=== PATIENT | male | born 1955 | race Caucasian/White ===

== ENCOUNTER 2019-01-26 13:38 | Emergency (ER) | payer MEDICARE, SELFPAY ==
[2019-01-26 13:39] VITALS: BP 147/70; PULSE 100; RESP 16; TEMP 37.2; O2SAT 96; BMI 34.0
--- NOTE | 2019-01-26 14:06 | RAD_ITS ---
STUDY: X-RAY CHEST REASON FOR EXAM: Male, 63 years old. Tachypnea and fever. TECHNIQUE: PA and lateral views of the chest. COMPARISON: None. FINDINGS: The lungs are clear and expanded. There is no demonstrated pleural abnormality. There is borderline cardiomegaly. Normal mediastinum and delfina. Normal visualized pulmonary arteries. There is atherosclerotic tortuosity of the aortic arch and descending thoracic aorta. There are diffuse degenerative changes of the visualized thoracic spine. Bilateral shoulder replacement. There is no demonstrated abnormality of the visualized soft tissue structures of the upper abdomen. RAD/Chest PA and Lateral IMPRESSION: No acute abnormality is seen. Electronically Signed: Mickey Ruff, at 15:00 EDT , Service support ,
[2019-01-26 14:29] LABS: Absolute Lymphocyte Count 0.54 X10^3/ul (0.83-4.51); Absolute Neutrophil Count 12.8 X10^3/uL (2.0-7.7); Basophil# 0.02 X10^3/uL; Basophil% 0.1 % (0-1); Differential Indicated SCAN CRITERIA MET; Eosinophil# 0.02 X10^3/uL; Eosinophils% 0.1 % (0-5); Hematocrit 44.3 % (40-54); Hemoglobin 15.4 g/dl (13.0-16.5); Lymphocyte # 0.54 X10^3/ul (4.0); Lymphocyte % 3.8 % (19-41); Mean Corp Hgb Conc 34.8 g/gl (32-36); Mean Corpuscular Hgb 30.4 pg (27.0-32.0); Mean Corpuscular Volume 87.4 fL (80-94); Monocyte# 0.91 X10^3/uL; Monocyte% 6.4 % (0-10); Neutrophil # 12.76 X10^3/uL (2.7-7.7); Neutrophil % 89.5 % (47-70); POSITIVE COUNT NO; POSITIVE DIFFERENTIAL YES; POSITIVE MORPHOLOGY NO; Platelet Count 209 K/mm3 (150-450); RBC Distribution Width CV 12.5 % (11.6-14.6); RBC Distribution Width SD 39.9 fl (35.1-43.9); Red Blood Count 5.07 M/mm3 (4.6-6.2); White Blood Count 14.3 K/mm3 (4.4-11.0)
[2019-01-26 14:42] LABS: Anion Gap 0 (5-15); BUN 17 mg/dL (7-18); Calcium,Total 9.2 mg/dL (8.5-10.1); Chloride 106 mmol/L (98-107); EST Glomerular Filtration Rate 91 mL/min (>60); Est Glom Filt Rate - Afr Amer 110 mL/min (>60); Estimated Creatinine Clearance 84.01 ml/min; Glucose 121 mg/dL (74-106); Potassium 4.1 mmol/L (3.5-5.1); Sodium Level 136 mmol/L (136-145)
[2019-01-26 14:49] LABS: Platelet Estimate ADEQUATE (ADEQ)
[2019-01-26 14:50] LABS: Red Cell Morphology NORM C+C NORMAL (NORM C&C)
[2019-01-26 14:54] LABS: Lactic Acid 1.6 mmol/L (0.4-2.0)
--- NOTE | 2019-01-26 14:54 | ED.VIS.GEN ---
History of Present Illness Chief Complaint: Back Detail of Chief Complaint: Bilateral upper back and shoulder pain Informant: Patient, Significant Other Onset: Days - For the past 2 days Context: Sudden Onset Timing: Continuous Quality: Pain Location: Upper back bilaterally Current Severity: Mild Maximum Severity: Moderate Worsened by: Use of upper extremity Relieved by: Nothing Associated Symptoms: Documented fever 101.0 degrees at urgent care. Narrative: Patient went to urgent care because of bilateral upper back pain. He was unaware that he had a fever. He did take 6 ibuprofen tablets and reason he may not have an elevated temperature presently. He complains of mild head discomfort. Denies photophobia. Patient reports neck pain which he felt was secondary to strenuous activity. He was unaware that he is breathing rapidly. He denies shortness of breath. Does report slight cough. He denies dyspnea on exertion. He denies nausea, vomiting or diarrhea. He denies dysuria, frequency, urgency hematuria. He denies myalgias arthralgias. He denies rash. Prior similar symptoms: No Recent Illness/Hospitalization: No - Past Medical History (1) No significant past medical history Status: Acute Past Medical History - Allergies and Home Meds Allergies/Adverse Reactions: Allergies acetaminophen [From Percocet] Adverse Reaction (Verified 01/26/19 13:41) Itching codeine Adverse Reaction (Verified 01/26/19 13:41) Upset Stomach oxycodone HCl [From Percocet] Adverse Reaction (Verified 01/26/19 13:41) Itching tramadol Adverse Reaction (Verified 01/26/19 13:41) Itching Primary Care Physician: Artie Lamar DO [Primary Care Provider] - Prior records reviewed: Yes Surgical History: herniorrhaphy Lives: Spouse/ Significant Other Smoking Status: Former smoker Alcohol: Rare Drugs: None Review of Systems General: Denies: Chills, Fever, Malaise, Subjective, Sweats Eyes: Denies: Visual changes - bilaterally, Blurred Vision - bilaterally, Diplopia ENT: Denies: Bilateral ear pain, Rhinorrhea, Sore throat Cardiovascular: Denies: Chest pain, Palpitations, Heart racing, -, - Respiratory: Reports: Cough. Denies: Dyspnea, Sputum, Dyspnea on exertion, Orthopnea, Paroxysmal nocturnal dyspnea, -, - Gastrointestinal: Denies: Abdominal pain, Nausea, Vomiting, Diarrhea, Melena, Hematochezia Genitourinary: Denies: Dysuria, Hematuria, Frequency Musculoskeletal: Reports: Swelling. Denies: Myalgias, Arthralgias, Neck pain, Back pain, Extremity Pain Skin: Denies: Rash, Wounds Neurological: Denies: Headache, Weakness, Parasthesia, Numbness Endocrine: Denies: Polyuria, Polydipsia Hematologic: Denies: Easy bruising, Easy bleeding Physical Exam Vital Signs/Narrative: Vital Signs Temp Pulse Resp BP Pulse Ox 01/26/19 13:39 98.9 F 100 16 147/70 H 96 Inital Vital Signs reviewed: Yes General: Well nourished, Well developed, No Acute Distress Head: Normocephalic, Atraumatic Eyes: Perrl, EOMI ENT: Moist mucous membranes, No rhinorrhea, TM's clear, -. Negative for: Dry mucous membranes, Nasal congestion, Sinus tenderness Neck: Supple, Nontender, No lymphadenopathy, No JVD Cardiovascular: Regular rate, Regular rhythm, No murmurs, Normal S1, Normal S2 Respiratory: No distress, Chest nontender, Rales - Right base Abdomen: Soft, Nontender, Nondistended, Normal bowel sounds Back: Nontender, Normal Inspection. Negative for: CVA tenderness, Spinal tenderness Extremities: Nontender, No edema, - - Axillary, median, radial and ulnar nerve function intact. Skin: Normal color, No rash Neurological: Alert, Oriented x3, Cranial nerves II-XII grossly intact, Normal Strength, Normal Sensation Psychological: Normal affect, Normal Mood Diagnostic/Tx/Re-eval Chest X-Ray - ED: 2 View, Read by ED Physician, Read by Radiologist, Normal, Heart, Lungs, Mediastinum, Bony Structures, No Acute Disease Impressions Chest X-Ray 01/26/19 14:06 IMPRESSION: No acute abnormality is seen. Electronically Signed: Mickey Ruff, at 15:00 EDT , Service support , 01/26/19 14:06 Chest PA and Lateral [RAD] Stat Laboratory Results 01/26/19 01/26/19 01/26/19 14:18 14:18 14:18 WBC 14.3 H RBC 5.07 Hgb 15.4 Hct 44.3 MCV 87.4 MCH 30.4 MCHC 34.8 RDW 12.5 RDW Differential 39.9 Plt Count 209 MPV 9.0 Immature Gran % (Auto) 0.100 Neut % (Auto) 89.5 H Lymph % (Auto) 3.8 L [place] % (Auto) 6.4 Eos % (Auto) 0.1 Baso % (Auto) 0.1 Absolute Neuts (auto) 12.8 H Absolute Lymphs (auto) 0.54 L Total Counted Not Reportable Differential Comment Platelet Estimate ADEQUATE RBC Morphology NORM C+C Sodium 136 Potassium 4.1 Chloride 106 Carbon Dioxide 30.0 Anion Gap 0 L BUN 17 Creatinine 0.90 Estim Creat Clear Calc 84.01 Est GFR (MDRD) Af Amer 110 Est GFR (MDRD) Non-Af 91 BUN/Creatinine Ratio 19.0 Glucose 121 H Lactic Acid 1.6 Calcium 9.2 - Medical Decision Making With fever and tachypnea and slight cough will obtain chest x-ray and appropriate blood work to assess for pneumonia. Otherwise this probably represents a viral illness with muscle skeletal pain. ED Disposition - Plan for ED Patient: Disposition: Home or Assisted Living Diagnosis: Fever, unknown origin, Acute upper back pain, Leukocytosis Instructions: ED Neck Back Pain General, ED Fever Unconf Cause Referrals: Artie Lamar DO [Primary Care Provider] - 3-5 Days if not improving
[2019-01-26] MEDS: Ketorolac 15 MG/ML Vial IV (16:24)
[2019-01-26 16:25] VITALS: BP 138/76; PULSE 78; RESP 15; O2SAT 95
== END 2019-01-26 17:02 | disposition home or self-care (01) ==
PROVIDERS: Emergency Provider Emergency Medicine; Family Provider Student in an Organized Health Care Education/Training Program; PCP Student in an Organized Health Care Education/Training Program
DX: R50.9 Fever, unspecified (principal); M54.2 Cervicalgia; R06.82 Tachypnea, not elsewhere classified; R05 Cough; Z88.5 Allergy status to narcotic agent; Z88.8 Allergy status to other drugs, medicaments and biological substances; Z87.891 Personal history of nicotine dependence
CPT/HCPCS: 71046; 80048; 83605; 85025; 96374; 99284; A4216

== ENCOUNTER 2021-08-08 04:54 | Emergency (ER) | payer MEDICARE, SELFPAY ==
[2021-08-08 04:55] VITALS: BP 164/90; PULSE 75; RESP 17; TEMP 37.1; O2SAT 98; BMI 36.6
[2021-08-08 05:06] VITALS: O2SAT 97
--- NOTE | 2021-08-08 05:06 | EKG12_ITS ---
Test Reason : SOB Blood Pressure : / mmHG Vent. Rate : 070 BPM Atrial Rate : 070 BPM P-R Int : 184 ms QRS Dur : 096 ms QT Int : 380 ms P-R-T Axes : 051 004 022 degrees QTc Int : 410 ms Normal sinus rhythm Normal ECG Confirmed by BABAR PETERSON, SONALI ([id number]), senior editor ILIANA POOLE ([id number]) on 08/13/2021 9:27:33 AM Referred By: RU Confirmed By:SONALI ECKERT MD
--- NOTE | 2021-08-08 05:07 | EX.ED.VIS.UR ---
HPI HPI - URI History of Present Illness Chief Complaint: Cough Detail of Chief Complaint: Cough and shortness of breath that started 3 days ago Informant: patient Associated Symptoms Associated Symptoms: Positive for Productive Cough Narrative Narrative: Is with cough and shortness of breath started 3 days ago. Patient is complaining of a fever. Patient states cough productive of brown sputum at times. Patient has had the Covid vaccine but not the booster. He denies any chest pain. Patient states his also had a similar illness and she had the illness first. He denies recent travel or surgery. Prior similar symptoms: No ROS ROS ED Constitutional Constitutional ED: Reports systems reviewed and no addt'l complaints, except as documented and fever(s); Denies body ache(s), change in weight or chills Eyes Eyes: Denies acute decrease in peripheral vision, change in vision, double vision or loss of vision ENT ENT ED: Reports none; Denies ear pain, lip swelling, loss taste/smell, neck pain, otalgia or sore throat Cardiovascular Cardiovascular: Reports none; Denies abdominal pain, chest pain with activity, leg edema, lightheadedness, palpitations, rapid heart rate or syncope Respiratory/Chest Respiratory/Chest: Reports none, cough and sputum; Denies change in mental status, dry cough, dyspnea, hemoptysis, shortness of breath at rest or shortness of breath with exertion Gastrointestinal Gastrointestinal: Reports none; Denies abdominal pain, change in stool character, diarrhea, hematemesis, hematochezia, melena, rectal bleeding or vomiting Genitourinary Genitourinary ED: Reports none; Denies abdominal discomfort, anuria, dysuria, genital pain or polyuria Musculoskeletal Musculoskeletal: Reports none; Denies arthralgias, back pain, difficulty walking, extremity pain, muscle weakness or myalgias Integumentary Reports none; Denies abscess or rash Neurologic Neurologic: Reports none; Denies abnormal gait, confusion, focal weakness, frequent falls, headache(s), loss of vision, numbness, paresthesias, radicular pain, vertigo or weakness Psychiatric Psychiatric: Reports systems reviewed and no addt'l complaints, except as documented and none; Denies behavioral changes, confusion, difficulty concentrating, hallucinations, suicidal ideation, tactile hallucinations or visual hallucinations Endocrine Endocrinology: Denies none, cold intolerance, excessive sweating, fatigue or heat intolerance Hematologic/Lymphatic Hematologic/Lymphatic: Reports none; Denies anemia, easy bleeding or easy bruising Allergic/Immunologic Allergic/Immunologic ED: Denies as per HPI, none, lip swelling, mouth swelling, throat swelling, tongue swelling or hives PFSH PFS Medical History (Updated 08/08/21 @ 06:[address] Jg Wooten, DO) Diabetes High cholesterol PRATIMA (obstructive sleep apnea) Home Medications omeprazole 20 mg PO DAILY 08/08/21 [History Last Taken Unknown] oseltamivir [Tamiflu] 75 mg PO BID 5 Days #10 cap 08/08/21 [Rx Last Taken Unknown] Allergy/AdvReac Type Severity Reaction Status Date / Time codeine AdvReac Upset Verified 01/26/19 13:41 Stomach oxycodone HCl [From Percocet] AdvReac Itching Verified 01/26/19 13:41 tramadol AdvReac Itching Verified 01/26/19 13:41 Social History Smoking Status: Former smoker EXAM Physical Exam Const Vital Signs: 08/08/21 04:55 08/08/21 05:06 08/08/21 05:27 Temperature 98.7 F Temperature Source Temporal Pulse Rate 75 72 Respiratory Rate 17 16 Respiratory Effort Normal Non-Labored Respiratory Depth Normal Respiratory Pattern Normal Normal Blood Pressure 164/90 H Blood Pressure Mean 114 Pulse Ox 98 Oxygen Delivery Method Room Air Room Air Positive well nourished and well developed General Appearance ED: well developed and NAD HEENT Reports TM's clear and moist mucous membranes normocephalic and atraumatic; Negative for trauma or tenderness Tympanic Membrane ED: Yes TM's clear Eyes PERRL and EOMs intact bilaterally General Eye ED: Negative for pale conjunctiva or scleral icterus Neck no lymphadenopathy, supple and no JVD General: Negative for tenderness Chest Wall inspection of chest normal and palpation of chest normal Chest: Negative for tenderness Resp clear to auscultation bilaterally Effort and Inspection: Negative for respiratory distress or pain with movement Auscultation: rhonchi and wheezes; Negative for diminished lung sounds Cardio regular rate, regular rhythm, S1 normal heart sound, S2 normal heart sound and no murmurs Peripheral Pulses: pulses 2+ throughout GI normal to inspection, nondistended, normoactive bowel sounds, soft to palpation, non-tender, non-distended and no masses Back/Spine no CVA tenderness and no thoracic nor lumbar tenderness Extremity normal to inspection General Extremety ED: Negative for edema General Extremity: Negative for edema Neuro oriented x3, CN's II-XII intact bilaterally, no sensory deficits noted and gait normal Sensorium / Orientation: awake, alert, oriented to person, oriented to place and oriented to time Motor Exam: strength 5/5 throughout and strength abnormal Psych mental status grossly normal Skin no rashes or lesions noted and no wounds MDM MDM MDM Narrative Medical decision making narrative: IV line established on arrival. Patient was given DuoNeb aerosol and Solu-Medrol 125 mg IV. Lab work-up unremarkable. Chest x-ray unremarkable. Patient did test positive for influenza A. Patient has been vaccinated against influenza and Covid. Patient did feel improved after DuoNeb aerosol. Will be discharged home with a prescription for albuterol as well as Tamiflu. Patient to follow-up with primary care physician in 3 to 5 days or return to ER for worsening shortness of breath or condition should worsen anyway. Lab Data Attestation: I reviewed the patient's lab results. Labs: Laboratory Results - last 24 hr 08/08/21 08/08/21 08/08/21 04:58 04:58 04:58 WBC 5.6 RBC 5.00 Hgb 15.0 Hct 44.0 MCV 88.0 MCH 30.0 MCHC 34.1 RDW Std Deviation 39.1 RDW Coeff of Rafaela 12.2 Plt Count 207 MPV 9.2 Immature Gran % (Auto) 0.500 Neut % (Auto) 50.4 Lymph % (Auto) 25.2 [place] % (Auto) 19.4 H Eos % (Auto) 3.8 Baso % (Auto) 0.7 Absolute Neuts (auto) 2.8 Absolute Lymphs (auto) 1.40 Nucleated RBC % 0 D-Dimer Quant (PE/DVT) 0.41 Sodium 141 Potassium 3.7 Chloride 105 Carbon Dioxide 27.0 Anion Gap 9 BUN 28 H Creatinine 0.80 Estim Creat Clear Calc 90.83 Est GFR (MDRD) Af Amer 124 Est GFR (MDRD) Non-Af 102 BUN/Creatinine Ratio 34.9 H Glucose 156 H Lactic Acid Calcium 8.6 08/08/21 05:15 WBC RBC Hgb Hct MCV MCH MCHC RDW Std Deviation RDW Coeff of Rafaela Plt Count MPV Immature Gran % (Auto) Neut % (Auto) Lymph % (Auto) [place] % (Auto) Eos % (Auto) Baso % (Auto) Absolute Neuts (auto) Absolute Lymphs (auto) Nucleated RBC % D-Dimer Quant (PE/DVT) Sodium Potassium Chloride Carbon Dioxide Anion Gap BUN Creatinine Estim Creat Clear Calc Est GFR (MDRD) Af Amer Est GFR (MDRD) Non-Af BUN/Creatinine Ratio Glucose Lactic Acid 0.9 Calcium Radiography Diagnostic Testing: Clinical Impression(s) from Imaging Studies Chest X-Ray 08/08/21 05:40 IMPRESSION: Elevated left hemidiaphragm, perhaps secondary to atelectasis. Electronically Signed: Scott Graham MD at 6:10 EST Tel , Service support , 1 view chest x-ray obtained interpreted by myself as no acute disease process. Radiology in agreement although they did note a elevated left hemidiaphragm. EKG Initial EKG: Attestation: I personally reviewed and interpreted this EKG as follows: Comments: Sinus rhythm with a ventricular rate of 70 bpm with no acute ST segment changes. Discharge Plan Triage Chief Complaint: Cough ED Provider: Jg Wooten Dx/Rx/DC Orders Clinical Impression: Influenza A Instructions: The Flu (Influenza) Prescriptions: New oseltamivir [Tamiflu] 75 mg capsule 75 mg PO BID 5 Days Qty: 10 RF: 0 No Action omeprazole 20 mg capsule,delayed release(DR/EC) 20 mg PO DAILY RF: 0 Primary Care Provider: Artie Lamar Referrals: Artie Lamar, [Primary Care Provider] - Disposition Disposition: Home, Self Care
[2021-08-08 05:15] LABS: Absolute Neutrophil Count 2.8 X10^3/uL (2.0-7.7); Basophil# 0.04 X10^3/uL; Basophil% 0.7 % (0-1); Eosinophil# 0.21 X10^3/uL; Eosinophils% 3.8 % (0-5); Lymphocyte % 25.2 % (19-41); Mean Corp Hgb Conc 34.1 g/dL (32-36); Mean Platelet Vol. 9.2 fl (6.2-12.0); Monocyte# 1.08 X10^3/uL; Monocyte% 19.4 % (0-10); NRBC Flagged by Analyzer 0 % (0-5); Neutrophil % 50.4 % (47-70); Platelet Count 207 K/mm3 (150-450); RBC Distribution Width CV 12.2 % (11.6-14.6); RBC Distribution Width SD 39.1 fl (35.1-43.9); White Blood Count 5.6 K/mm3 (4.4-11.0)
[2021-08-08] MEDS: 0.9% Normal Saline 1,000 ML 150 ML IV (05:18)
[2021-08-08] MEDS: MethylPREDNISolone 125 MG/2 ML Vial IV (05:18)
[2021-08-08 05:24] LABS: D-Dimer Quantitative (DVT/PE) 0.41 FEU/ug/m (0.27-0.49)
[2021-08-08 05:27] VITALS: PULSE 72; RESP 16
[2021-08-08] MEDS: Ipratropium/Albuterol Sulfate 3 ML AMPUL.NEB INHALATION (05:27)
[2021-08-08 05:34] LABS: Anion Gap 9 (5-15); BUN 28 mg/dL (7-18); BUN/Creat Ratio 34.9 RATIO (10-20); Calcium,Total 8.6 mg/dL (8.5-10.1); Chloride 105 mmol/L (98-107); EST Glomerular Filtration Rate 102 mL/min (>60); Est Glom Filt Rate - Afr Amer 124 mL/min (>60); Estimated Creatinine Clearance 90.83 ml/min; Glucose 156 mg/dL (74-106); Potassium 3.7 mmol/L (3.5-5.1); Sodium Level 141 mmol/L (136-145)
--- NOTE | 2021-08-08 05:40 | RAD_ITS ---
STUDY: X-RAY CHEST REASON FOR EXAM: Male, 66 years old. Dyspnea TECHNIQUE: Portable, upright, AP chest radiograph COMPARISON: 01/26/2019 FINDINGS: Elevated left hemidiaphragm. The lungs are otherwise clear. There is no demonstrated pleural abnormality. There is borderline cardiomegaly. Normal mediastinum and delfina. Normal visualized pulmonary arteries. There is atherosclerotic tortuosity of the aortic arch and descending thoracic aorta. There is no demonstrated abnormality of the visualized soft tissue structures of the upper abdomen. RAD/Chest 1 View (Portable) IMPRESSION: Elevated left hemidiaphragm, perhaps secondary to atelectasis. Electronically Signed: Scott Graham MD at 6:10 EST Tel , Service support ,
[2021-08-08 05:48] LABS: Lactic Acid 0.9 mmol/L (0.4-1.9)
[2021-08-08] MEDS: Oseltamivir Phosphate 75 MG Capsule PO (07:08)
[2021-08-08] MEDS: Albuterol Sulfate 8 gm Inhaler (60 puffs) 2 PUFF INHALATION (07:09)
[2021-08-08 07:12] VITALS: BP 135/78; PULSE 78; RESP 18; O2SAT 95
== END 2021-08-08 07:13 | disposition home or self-care (01) ==
PROVIDERS: Emergency Provider Emergency Medicine; PCP Student in an Organized Health Care Education/Training Program
DX: J10.1 Influenza due to other identified influenza virus with other respiratory manifestations (principal); Z87.891 Personal history of nicotine dependence
CPT/HCPCS: 71045; 80048; 83605; 85025; 85379; 87040; 87426; 87804; 93005; 94640; 96361; 96374; 99284; J7030; A4216